=== PATIENT | female | born 1970 | race Caucasian/White ===

== ENCOUNTER → 2024-01-13 08:49 | Outpatient (REF) | payer OTHER, SELFPAY | LOC: WDC 08:49 | PROVIDERS: ATTENDING PHYSICIAN Nurse Practitioner Adult Health; FAMILY PHYSICIAN Family Medicine | DX: Z12.31 Encounter for screening mammogram for malignant neoplasm of breast (principal) | CPT/HCPCS: 77063; 77067 ==

== ENCOUNTER → 2024-04-16 19:41 | Outpatient (REF) | payer OTHER, SELFPAY | LOC: MRI 3T 19:41 | PROVIDERS: ATTENDING PHYSICIAN Physician Assistant; FAMILY PHYSICIAN Family Medicine | DX: M25.512 Pain in left shoulder (principal) | CPT/HCPCS: 73221 ==

== ENCOUNTER 2024-05-21 06:18 | Day surgery (SDC) | payer OTHER, SELFPAY ==
[2024-05-14 08:50] VITALS: BMI 26.9
--- NOTE | 2024-05-14 15:47 | PTCARENOTE ---
Abnormal EKG 05/14/24. Dr. Carter aware. No intervention needed.
[2024-05-21] VITALS (13 sets, daily range): BP systolic 100–119; BP diastolic 56–80; BMI 26.9
[2024-05-21] MEDS: TYLENOL 1000 MG PO (07:04)
[2024-05-21] MEDS: CELEBREX 200 MG PO (07:04)
[2024-05-21] MEDS: NORMOSOL-R/PLASMALYTE-A 1000 IV (07:05)
--- NOTE | 2024-05-21 10:22 | SUR.PHASEI ---
"Patient had possible run of VT, EKG leads not registering on admit to PACU, while placing leads possible VT run occurred versus artifact, patient was not symptomatic and remained alert during possible run. Anesthesia informed, patient seen by Dr Alexandra (~). "
[2024-05-21 11:24] LABS: Blood Urea Nitrogen 25 mg/dl (7-17); Calcium 9.8 mg/dl (8.4-10.2); Carbon Dioxide 24 mmol/L (22-30); Chloride 104 mmol/L (98-107); Estimated Creatinine Clearance 78 ml/min; Glucose 132 mg/dl (70-99); Potassium 4.4 mmol/L (3.5-5.1); Sodium 143 mmol/L (135-145); eGFR > 60.00
--- NOTE | 2024-05-21 11:36 | PTCARENOTE ---
Cardiology here to see patient. updated on plan of care. Gregorio Lynn RN BSN.
--- NOTE | 2024-05-21 12:04 | CON.CAR ---
Addendum entered and electronically signed by Dmitry Goldstein MD 05/21/24 13:24:
I saw and examined the patient.
The [employer]'s note was reviewed and I agree with the note.
54-year-old woman with a history of PVCs and ventricular bigeminy, CVA in 1997 who previously will follow with Dr. Burns last visit 07/2023. Patient had elective shoulder replacement surgery. Consult for abnormal rhythm noted on telemetry.
Concern raised for wide-complex tachycardia. Patient remained asymptomatic throughout. Rhythm was noted while they were trying to fix her telemetry and reapply leads. Patient's had no additional symptoms. Review of telemetry that is consistent
with artifact and not nonsustained ventricular tachycardia. Patient's normal QRS can be seen marching through the rhythm in addition the pulse ox does not coordinate and remained regular similar to when patient's ECG reflected normal rhythm. There
also appears to be artifact on the respiratory tracing at the same time. Based on the above no additional evaluation or testing is required. Issues were reviewed with the patient as well as nursing staff and Dr. Weber from anesthesia. No changes
in medical therapy patient will follow-up in our office as scheduled.
Original Note:
Consultation
Consultation Request
Date/Time Consultation Requested: 05/21/24 10:40a
Date/Time Consultation Performed: 05/21/24 11:30a
Requesting Provider: Dr. Weber
Performing Provider: TYE Arevalo for Dr. Goldstein
Reason for Consultation: possible NSVT
Medical History
-
Chief Complaint: elective left shoulder surgery - rotator cuff tear
History of Present Illness:
Mrs. Robbins is a 54 yo female with PVCs, ventricular bigeminy pattern, prior CVA 1997, HLD on Crestor once a week, and left rotator cuff tear, who presents for elective left shoulder surgery with Dr. Patino and post op was noted to have possible
NSVT on tele monitor. This occurred while switching her tele leads and appears to be artifact only, she was hemodynamically stable as well. We are consulted for NSVT. Tele shows NSR with frequent PVCs, bigeminy pattern at times. She is aware of
her PVCs (skipped beats) when at rest, not with exertion and denies any other cardiac symptoms. Echo 08/2022 showed normal LVEF and no significant valve disease. 2 week outpatient lawn care technician showed 15% PVCs, one episode of Atach.
Past Medical History
Past Medical History: Other (as above)
Past Surgical History: Other (as above)
Social History
Tobacco: Non-Smoker
Alcohol: Occasional
Personal:
Living: With Family
Family History
Family History: Reviewed & Not Pertinent
Allergies / Home Medications
Allergy/AdvReac Type Severity Reaction Status Date / Time
No Known Allergies Allergy Verified 05/21/24 06:43
�Medication �Instructions �Recorded �Confirmed �Type
aspirin 81 mg tablet,delayed 81 mg PO DAILY 05/10/24 05/21/24 History
release
cholecalciferol (vitamin D3) 125 125 mcg PO DAILY 05/10/24 05/21/24 History
mcg (5,000 unit) tablet (Vitamin
D3)
docosahexaenoic lobb-cfc-sbs E 2 cap PO DAILY 05/10/24 05/21/24 History
capsule
rosuvastatin 5 mg tablet 5 mg PO WEEKLY 05/10/24 05/21/24 History
ubrogepant 100 mg tablet (Ubrelvy) 100 mg PO PRN PRN migraines 05/10/24 05/21/24 History
acetaminophen 325 mg tablet 650 mg PO Q6H PRN pain 05/21/24 05/21/24 History
(Tylenol)
Review of Systems
-
History Source: Patient
All other systems: Negative unless noted
Physical Exam
Vital Signs
Temp Pulse Resp BP Pulse Ox
97.5 F 82 18 108/56 95
05/21/24 11:52 05/21/24 11:45 05/21/24 11:45 05/21/24 11:30 05/21/24 11:45
Lab Results
05/21/24 10:54
Physical Exam
General: Well Developed, Well Nourished and No Apparent Distress
HEENT: Normocephalic
Respiratory: Clear and Non Labored Respirations
Cardiac: S1/S2 and Regular Rhythm (PVCs )
Breast: Deferred by me
GI: Soft, Non Tender, Non Distended and Normal Bowel Sounds
Rectal: Deferred by Provider
Genito-urinary: No Costovertebral Tender
Musculoskeletal: No Clubbing, No Cyanosis and No Edema
Skin: Warm and Dry
Neuro: AO x 3
Hematologic/Lymphatic: No Lymphadenopathy
Psych: Calm
Impression / Plan
-
NSVT - possible on tele post-op left shoulder surgery today.
- this occurred while PACU nurse was switching tele leads and appears to be artifact only.
- asymptomatic, denied palps and hemodynamically stable.
- reviewed with EP cardiology who also fees this is artifact and not real NSVT.
PVCs - chronic.
- occasionally feels skipped beats at rest.
- echo 08/2022 normal LVEF and no valve disease.
Left shoulder rotator cuff tear - s/p surgery today by Dr. Patino.
- pain controlled.
CVA - 1997.
- stable without new symptoms.
- tolerating Crestor 5mg once a week. LDL 79 10/2023.
Migraines - stable on PRN Ubrelvy.
Data Reviewed
-
EKG: Tracing Personally Visualized and interpreted (SR with PVCs, bigeminy pattern)
Medical Tests (Nuc Med, Echo etc): Report Reviewed by me (echo 08/2022: normal LVEF, no valve disease)
Labs: Labs Reviewed by me
Old Records: Reviewed
--- NOTE | 2024-05-21 13:05 | SUR.PHASEI ---
Patient seen By Dr torres, cleared for transfer to [facility]. VSS. Gregorio Lynn RN BSN.
== END 2024-05-21 14:03 | disposition home or self-care (01) ==
LOC: SDS 06:18
PROVIDERS: Anesthesiology; ATTENDING PHYSICIAN Orthopaedic Surgery; FAMILY PHYSICIAN Family Medicine; OTHER PHYSICIAN Internal Medicine Cardiovascular Disease
DX: M75.102 Unspecified rotator cuff tear or rupture of left shoulder, not specified as traumatic (principal)
CPT/HCPCS: 29827; 36415; 80048; 93005; C1713

== ENCOUNTER → 2025-01-13 15:17 | Outpatient (REF) | payer OTHER, SELFPAY | LOC: WDC 15:17 | PROVIDERS: ATTENDING PHYSICIAN Nurse Practitioner Adult Health; FAMILY PHYSICIAN Family Medicine | DX: Z12.31 Encounter for screening mammogram for malignant neoplasm of breast (principal) | CPT/HCPCS: 77063; 77067 ==